=== PATIENT | male | born 1980 | race Caucasian/White ===

== ENCOUNTER 2025-03-24 10:26 | Observation (INO) | payer BC ==
[2025-03-24] MEDS ORDERED: Iopamidol-370 76% 500 ML MDV (1 ML CHARGE) ONE (11:42)
[2025-03-24] MEDS ORDERED: Metoclopramide HCl 10 MG (2 mL) VIAL ONE (11:52)
[2025-03-24] MEDS ORDERED: diphenhydrAMINE 50 MG/ML VIAL ONE (11:52)
[2025-03-24 12:08] LABS: #Eosinophils Less than 0.03 10x3/uL (0.0-0.7)
[2025-03-24 12:25] LABS: ALT (SGPT) 27 U/L (Less than 45); AST (SGOT) 24 U/L (11-34); Albumin 4.4 g/dL (3.1-4.5); Alkaline Phosphatase 137 U/L (40-110); Anion Gap 23 mmol/L (10-20); BUN (Urea Nitrogen) 15 mg/dL (8.9-20.6); Bilirubin, Total 1.8 mg/dL (0.3-1.2); Calc. Creatinine Clearance 0 mL/min (70-130); Calcium 9.7 mg/dL (7.8-10.44); Carbon Dioxide 20 mmol/L (22-29); Chloride 99 mmol/L (98-107); Globulin 3.9 g/dL (2.4-3.5); Glucose 233 mg/dL (70-105); Lipase 18 U/L (8-78); Potassium 4.0 mmol/L (3.5-5.1); Sodium 138 mmol/L (136-145)
[2025-03-24 12:35] LABS: #Basophils 0.03 10x3/uL (0.0-0.2); #Monocytes 0.87 10x3/uL (0.11-0.59); #Neutrophils 16.80 10x3/uL (1.40-6.50); %Basophils 0.2 % (0.0-1.0); %Eosinophils 0.1 % (0.0-10.0); %Lymphocytes 4.4 % (21.0-51.0); %Monocytes 4.7 % (0.0-10.0); %Neutrophils 90.1 % (42.0-75.0); Hematocrit 43.9 % (42.0-52.0); Hemoglobin 15.4 g/dL (14.0-18.0); Mean Corpuscular Hemoglobin 31.6 pg (27.0-31.0); Mean Corpuscular Volume 90.1 fL (78.0-98.0); Platelet Count 315 10x3/uL (130-400); Red Blood Cell (RBC) Count 4.87 mill/uL (4.70-6.10); White Blood Cell (WBC) Count 18.63 10x3/uL (4.8-10.8)
[2025-03-24 15:00] LABS: Bacteria/HPF None Seen HPF (None Seen); CAUTI Indications for Culture Pelvic or flank pain; Glucose, Urine (Dipstick) 500 mg/dL (Negative); Leukocyte Negative Leu/uL (Negative); Protein, Urine (Dipstick) 20 mg/dL (Neg-Trace); RBC/HPF 0-3 HPF (0-3); WBC/HPF 0-3 HPF (0-3)
[2025-03-24 15:01] LABS: Specific Gravity, Urine Greater than 1.015 (1.002-1.036); Urine Culture Reflex No No
[2025-03-24 15:59] LABS: Actual Bicarbonate (HCO3v) 22.7 mEq/L (22-28); Analyzer IN Cardio ER; Base Excess -3.4 mEq/L (-2.0 to +3.0); Calcium, Ionized (venous) 1.07 mmol/L (1.16-1.32); Chloride (VBG) 99 mmol/L (98-106); Hematocrit-VBG 45 % (42.0-52.0); Hemoglobin (Hb) 15.2 g/dL (13.1-17.2); Potassium (VBG) 3.69 mmol/L (3.70-5.30); Sodium 141 mmol/L (133-146)
[2025-03-24] MEDS ORDERED: Melatonin 3 MG TAB PO PRN (18:11)
[2025-03-24] MEDS ORDERED: Acetaminophen 325 MG TAB PO PRN (18:11)
[2025-03-24] MEDS ORDERED: Ondansetron PF 4 MG/2 ML Vial IVP PRN (18:11)
[2025-03-24] MEDS ORDERED: Glucagon 1 MG/ML KIT IM PRN (18:15)
[2025-03-24] MEDS ORDERED: Vancomycin 1 GM in Premix 1 BAG IVPB SCH (18:15)
[2025-03-24] MEDS ORDERED: Dextrose 50% Abboject 50 ML SYRINGE SLOW IVP PRN (18:15)
[2025-03-24 21:26] VITALS: BMI 37.5
[2025-03-24] MEDS ORDERED: Pharmacy to Dose: VANC IVPB PRN (21:53)
[2025-03-24] MEDS: Vancomycin (BATCH) 2.5 GM in Premix 1 BAG IVPB SCH (23:19)
[2025-03-25] MEDS: Pantoprazole 40 MG VIAL IVP SCH (02:03)
[2025-03-25] MEDS: VANCOMYCIN 1.75 GM/350 ML Premix BAG IVPB SCH (05:22)
[2025-03-25 05:52] LABS: #Basophils Less than 0.03 10x3/uL (0.0-0.2); #Eosinophils Less than 0.03 10x3/uL (0.0-0.7); #Monocytes 0.79 10x3/uL (0.11-0.59); #Neutrophils 9.87 10x3/uL (1.40-6.50); %Basophils 0.2 % (0.0-1.0); %Eosinophils 0.0 % (0.0-10.0); %Lymphocytes 14.5 % (21.0-51.0); %Monocytes 6.3 % (0.0-10.0); %Neutrophils 78.8 % (42.0-75.0); Hematocrit 37.3 % (42.0-52.0); Hemoglobin 13.1 g/dL (14.0-18.0); Mean Corpuscular Hemoglobin 32.0 pg (27.0-31.0); Mean Corpuscular Volume 91.2 fL (78.0-98.0); Platelet Count 271 10x3/uL (130-400); Red Blood Cell (RBC) Count 4.09 mill/uL (4.70-6.10); White Blood Cell (WBC) Count 12.52 10x3/uL (4.8-10.8)
[2025-03-25 06:08] LABS: Anion Gap 13 mmol/L (10-20); BUN (Urea Nitrogen) 16 mg/dL (8.9-20.6); Calc. Creatinine Clearance 200 mL/min (70-130); Calcium 8.4 mg/dL (7.8-10.44); Carbon Dioxide 21 mmol/L (22-29); Chloride 109 mmol/L (98-107); Glucose 168 mg/dL (70-105); Potassium 3.7 mmol/L (3.5-5.1); Sodium 139 mmol/L (136-145)
[2025-03-25 06:13] LABS: Vancomycin, Random 20.2 ug/mL (See Comment)
[2025-03-25] MEDS: PNEUMOC 20-VAL CONJ-DIP CRM/PF 0.5 ML SYRINGE IM ONE (08:08)
[2025-03-25 08:49] VITALS: BP 123/77; TEMP 97.8
[2025-03-25] MEDS ORDERED: VANCOMYCIN 1.75 GM/350 ML Premix BAG IVPB SCH (21:00)
== END 2025-03-25 12:00 | disposition home or self-care (01) ==
LOC: ERS 10:26 → SURG A 17:09
PROVIDERS: ADMIT Family Medicine; ATTEND Family Medicine
DX: A41.9 Sepsis, unspecified organism (principal); K52.9 Noninfective gastroenteritis and colitis, unspecified; I10 Essential (primary) hypertension; E11.9 Type 2 diabetes mellitus without complications; E66.9 Obesity, unspecified; Z68.37 Body mass index [BMI] 37.0-37.9, adult
CPT/HCPCS: 36415; 36416; 71045; 74177; 80048; 80053; 80202; 81001; 82010; 82805; 83605; 83690; 84145; 84484; 85025; 87040; 87428; 93005; 96361; 96365; 96366; 96367; 96368; 96375; 96376; G0378; J0692; J1200; J1630; J1815; J2470; J2765; J3373; J3375; J7030; Q0162; Q9967

== ENCOUNTER 2025-03-25 21:13 | Inpatient (IN) | payer BC ==
[2025-03-25 22:26] LABS: #Basophils 0.03 10x3/uL (0.0-0.2); #Eosinophils Less than 0.03 10x3/uL (0.0-0.7); #Monocytes 0.30 10x3/uL (0.11-0.59); #Neutrophils 11.65 10x3/uL (1.40-6.50); %Basophils 0.2 % (0.0-1.0); %Eosinophils 0.0 % (0.0-10.0); %Lymphocytes 7.5 % (21.0-51.0); %Monocytes 2.3 % (0.0-10.0); %Neutrophils 89.6 % (42.0-75.0); Hematocrit 43.4 % (42.0-52.0); Hemoglobin 15.1 g/dL (14.0-18.0); Mean Corpuscular Hemoglobin 31.3 pg (27.0-31.0); Mean Corpuscular Volume 90.0 fL (78.0-98.0); Platelet Count 314 10x3/uL (130-400); Red Blood Cell (RBC) Count 4.82 mill/uL (4.70-6.10); White Blood Cell (WBC) Count 13.01 10x3/uL (4.8-10.8)
[2025-03-25] MEDS ORDERED: Ondansetron PF 4 MG/2 ML Vial ONE (22:38)
[2025-03-25 23:02] LABS: ALT (SGPT) 21 U/L (Less than 45); AST (SGOT) 22 U/L (11-34); Albumin 4.3 g/dL (3.1-4.5); Alkaline Phosphatase 132 U/L (40-110); Anion Gap 24 mmol/L (10-20); BUN (Urea Nitrogen) 13 mg/dL (8.9-20.6); Bilirubin, Total 1.5 mg/dL (0.3-1.2); Calc. Creatinine Clearance 0 mL/min (70-130); Calcium 9.3 mg/dL (7.8-10.44); Carbon Dioxide 16 mmol/L (22-29); Chloride 101 mmol/L (98-107); Globulin 3.7 g/dL (2.4-3.5); Glucose 204 mg/dL (70-105); Lipase 37 U/L (8-78); Potassium 4.1 mmol/L (3.5-5.1); Sodium 137 mmol/L (136-145)
[2025-03-25] MEDS ORDERED: Droperidol 5 MG/2 ML VIAL ONE (23:36)
[2025-03-26 01:18] LABS: Bacteria/HPF None Seen HPF (None Seen); CAUTI Indications for Culture Pelvic or flank pain; Glucose, Urine (Dipstick) 500 mg/dL (Negative); Leukocyte Negative Leu/uL (Negative); Protein, Urine (Dipstick) Negative (Neg-Trace); RBC/HPF 0-3 HPF (0-3); Specific Gravity, Urine 1.018 (1.002-1.036); WBC/HPF 0-3 HPF (0-3)
[2025-03-26 01:20] LABS: Actual Bicarbonate (HCO3v) 18.8 mEq/L (22-28); Analyzer IN Cardio ER; Base Excess -4.5 mEq/L (-2.0 to +3.0); Calcium, Ionized (venous) 1.06 mmol/L (1.16-1.32); Chloride (VBG) 101 mmol/L (98-106); Hematocrit-VBG 42 % (42.0-52.0); Hemoglobin (Hb) 14.4 g/dL (13.1-17.2); Potassium (VBG) 3.65 mmol/L (3.70-5.30); Sodium 136 mmol/L (133-146)
[2025-03-26 01:28] LABS: Urine Culture Reflex No No
[2025-03-26] MEDS ORDERED: Acetaminophen 325 MG TAB PO PRN (03:04)
[2025-03-26] MEDS: Ondansetron PF 4 MG/2 ML Vial IVP PRN (05:37)
[2025-03-26] MEDS: Losartan 25 MG TAB PO SCH (09:52)
[2025-03-26] MEDS ORDERED: Bacteriostatic Normal Saline 30 ML VIAL ONE (12:17)
[2025-03-26] MEDS ORDERED: Sincalide 5 MCG VIAL ONE (12:17)
[2025-03-26 16:08] LABS: #Basophils Less than 0.03 10x3/uL (0.0-0.2); #Eosinophils Less than 0.03 10x3/uL (0.0-0.7); #Monocytes 0.46 10x3/uL (0.11-0.59); #Neutrophils 8.27 10x3/uL (1.40-6.50); %Basophils 0.2 % (0.0-1.0); %Eosinophils 0.0 % (0.0-10.0); %Lymphocytes 12.5 % (21.0-51.0); %Monocytes 4.6 % (0.0-10.0); %Neutrophils 82.4 % (42.0-75.0); Hematocrit 38.7 % (42.0-52.0); Hemoglobin 13.4 g/dL (14.0-18.0); Mean Corpuscular Hemoglobin 31.1 pg (27.0-31.0); Mean Corpuscular Volume 89.8 fL (78.0-98.0); Platelet Count 284 10x3/uL (130-400); Red Blood Cell (RBC) Count 4.31 mill/uL (4.70-6.10); White Blood Cell (WBC) Count 10.04 10x3/uL (4.8-10.8)
[2025-03-26 16:24] LABS: ALT (SGPT) 13 U/L (Less than 45); AST (SGOT) 14 U/L (11-34); Albumin 3.6 g/dL (3.1-4.5); Alkaline Phosphatase 105 U/L (40-110); Anion Gap 17 mmol/L (10-20); BUN (Urea Nitrogen) 12 mg/dL (8.9-20.6); Bilirubin, Total 0.9 mg/dL (0.3-1.2); Calc. Creatinine Clearance 204 mL/min (70-130); Calcium 8.5 mg/dL (7.8-10.44); Carbon Dioxide 21 mmol/L (22-29); Chloride 103 mmol/L (98-107); Globulin 3.4 g/dL (2.4-3.5); Glucose 191 mg/dL (70-105); Potassium 3.7 mmol/L (3.5-5.1); Sodium 137 mmol/L (136-145)
[2025-03-26] MEDS: Pantoprazole 40 MG VIAL IVP SCH (16:27)
[2025-03-26] MEDS ORDERED: Dextrose 50% Abboject 50 ML SYRINGE SLOW IVP PRN (17:13)
[2025-03-26] MEDS ORDERED: Glucagon 1 MG/ML KIT IM PRN (17:13)
[2025-03-26] MEDS: Ondansetron PF 4 MG/2 ML Vial IVP SCH (17:37)
[2025-03-27 06:09] LABS: #Basophils Less than 0.03 10x3/uL (0.0-0.2); #Eosinophils Less than 0.03 10x3/uL (0.0-0.7); #Monocytes 0.37 10x3/uL (0.11-0.59); #Neutrophils 6.82 10x3/uL (1.40-6.50); %Basophils 0.2 % (0.0-1.0); %Eosinophils 0.0 % (0.0-10.0); %Lymphocytes 16.8 % (21.0-51.0); %Monocytes 4.3 % (0.0-10.0); %Neutrophils 78.4 % (42.0-75.0); Hematocrit 38.8 % (42.0-52.0); Hemoglobin 13.8 g/dL (14.0-18.0); Mean Corpuscular Hemoglobin 31.7 pg (27.0-31.0); Mean Corpuscular Volume 89.2 fL (78.0-98.0); Platelet Count 273 10x3/uL (130-400); Red Blood Cell (RBC) Count 4.35 mill/uL (4.70-6.10); White Blood Cell (WBC) Count 8.70 10x3/uL (4.8-10.8)
[2025-03-27 06:32] LABS: ALT (SGPT) 12 U/L (Less than 45); AST (SGOT) 15 U/L (11-34); Albumin 3.4 g/dL (3.1-4.5); Alkaline Phosphatase 94 U/L (40-110); Anion Gap 17 mmol/L (10-20); BUN (Urea Nitrogen) 14 mg/dL (8.9-20.6); Bilirubin, Total 0.9 mg/dL (0.3-1.2); Calc. Creatinine Clearance 199 mL/min (70-130); Calcium 8.4 mg/dL (7.8-10.44); Carbon Dioxide 25 mmol/L (22-29); Chloride 101 mmol/L (98-107); Globulin 3.1 g/dL (2.4-3.5); Glucose 180 mg/dL (70-105); Potassium 3.5 mmol/L (3.5-5.1); Sodium 139 mmol/L (136-145)
[2025-03-27] MEDS ORDERED: Non-Formulary Item 1 EACH (Losartan Potassium [Losartan Potassium] 50 MG Tablet) PO SCH (09:00)
[2025-03-27] MEDS ORDERED: SUCCINYLCHOLINE/SOD CL,ISO/PF 200 MG/10 ML SYRINGE FS ONE (10:19)
[2025-03-27] MEDS ORDERED: PROPOFOL 200 MG/20 ML VIAL ONE (10:40)
[2025-03-27] MEDS ORDERED: Lidocaine 1% PF 5 ML VIAL ONE (10:40)
[2025-03-27] MEDS ORDERED: Ondansetron PF 4 MG/2 ML Vial ONE (10:48)
[2025-03-27] MEDS: Pantoprazole 40 MG VIAL IVP SCH (16:27)
[2025-03-27] MEDS: Ondansetron PF 4 MG/2 ML Vial IVP SCH (16:27)
[2025-03-27 18:50] VITALS: BMI 37.2
[2025-03-27] MEDS: Calcium Carbonate 500 MG ChewTAB PO PRN (20:10)
[2025-03-28 10:25] VITALS: BMI 36.2
[2025-03-28] MEDS: Metoclopramide HCl 10 MG (2 mL) VIAL IVP SCH (10:53)
[2025-03-28] MEDS: Ondansetron PF 4 MG/2 ML Vial IVP SCH (10:53)
[2025-03-28] MEDS: Sucralfate 1 GM TAB PO SCH (12:17)
[2025-03-29 12:42] VITALS: BP 151/93; TEMP 98.2
== END 2025-03-29 12:45 | disposition home or self-care (01) | DRG 382 ==
LOC: ERS 21:13 → SURG B 03-26 03:07
PROVIDERS: ADMIT Student in an Organized Health Care Education/Training Program; ATTEND Family Medicine
PROC: 0DB58ZX Excision of Esophagus, Via Natural or Artificial Opening Endoscopic, Diagnostic (ICD-10-PCS; principal; 2025-03-27)
DX: K22.10 Ulcer of esophagus without bleeding (principal); E11.43 Type 2 diabetes mellitus with diabetic autonomic (poly)neuropathy; E11.65 Type 2 diabetes mellitus with hyperglycemia; E88.89 Other specified metabolic disorders; K31.84 Gastroparesis; I10 Essential (primary) hypertension; E86.0 Dehydration; K29.80 Duodenitis without bleeding; K82.8 Other specified diseases of gallbladder; K21.9 Gastro-esophageal reflux disease without esophagitis
CPT/HCPCS: 36415; 36416; 76705; 78227; 80053; 81001; 82010; 82805; 83690; 85025; 88305; 88312; 88342; 93005; 96361; 96365; 96366; 96375; A9537; J1100; J1790; J1815; J2405; J2470; J2543; J2704; J2765; J2805; J3010; J7120; Q0162